=== PATIENT | female | born 1985 ===

== ENCOUNTER 2017-03-31 14:19 | Outpatient (CLI) | payer OTHER ==
[~2017-03-31] VITALS: Ht 157.5 cm; Wt 75.3 kg
== END 2017-03-31 14:45 | disposition home or self-care (01) ==
LOC: OFIC 805 14:19
DX: H61.23 Impacted cerumen, bilateral (principal)

== ENCOUNTER 2018-03-19 09:12 | Inpatient (IN) | payer OTHER ==
[~2018-03-19] VITALS: Ht 160 cm; Wt 3.2 kg
[2018-04-20] MEDS ORDERED: PRENATAL TABLE1 EAC1 PO (22:35)
== END 2018-04-24 13:35 | DRG 788 ==
LOC: OB/GYN 04-15 10:45 → LDR 04-20 15:19 → OB/GYN 04-21 17:53
PROVIDERS: ADMIT Obstetrics & Gynecology
PROC: 4A1HXCZ Monitoring of Products of Conception, Cardiac Rate, External Approach (ICD-10-PCS; 2018-04-20)
PROC: 3E033VJ Introduction of Other Hormone into Peripheral Vein, Percutaneous Approach (ICD-10-PCS; 2018-04-21)
PROC: 10D00Z1 Extraction of Products of Conception, Low, Open Approach (ICD-10-PCS; principal; 2018-04-21 19:00)
DX: O61.0 Failed medical induction of labor (principal); O33.8 Maternal care for disproportion of other origin; Z3A.41 41 weeks gestation of pregnancy; Z37.0 Single live birth; Z22.330 Carrier of Group B streptococcus

== ENCOUNTER 2018-04-07 15:04 | Outpatient (CLI) | payer OTHER | END 2018-04-07 15:42 | disposition home or self-care (01) | LOC: NST 15:04 | DX: Z34.83 Encounter for supervision of other normal pregnancy, third trimester (principal) ==

== ENCOUNTER 2018-04-09 08:27 | Outpatient (CLI) | payer OTHER | END 2018-04-09 09:53 | disposition home or self-care (01) | LOC: NST 08:27 | DX: Z34.83 Encounter for supervision of other normal pregnancy, third trimester (principal) ==

== ENCOUNTER 2018-04-12 10:19 | Outpatient (CLI) | payer OTHER | END 2018-04-12 11:15 | disposition home or self-care (01) | LOC: NST 10:19 | DX: Z34.83 Encounter for supervision of other normal pregnancy, third trimester (principal) ==

== ENCOUNTER 2018-04-19 08:35 | Outpatient (CLI) | payer OTHER ==
[2018-04-20] MEDS ORDERED: PRENATAL TABLE1 EAC1 PO (22:35)
== END 2018-04-19 09:34 | disposition home or self-care (01) ==
LOC: NST 08:35
DX: Z34.83 Encounter for supervision of other normal pregnancy, third trimester (principal)